=== PATIENT | female | born 1985 | race Hispanic/Latino ===

== ENCOUNTER 2018-03-05 13:59 | Inpatient (IN) | payer MEDICAID, OTHER, SELFPAY ==
[2018-03-05] MEDS ORDERED: Esmolol 100 MG/10 ML VIAL ONE ×2 (14:04→16:57)
[2018-03-05] MEDS ORDERED: Glycopyrrolate 0.2 MG/ML 5 ML SYRINGE ONE ×2 (14:04→16:54)
[2018-03-05] MEDS ORDERED: Ketorolac Tromethamine 30 MG/ML VIAL ONE ×2 (14:04→16:39)
[2018-03-05] MEDS ORDERED: Succinylcholine Chloride 20 MG/ML 10 ml SYRINGE FS ONE ×2 (14:04→17:01)
[2018-03-05] MEDS ORDERED: Dexamethasone 20 MG/5 ML VIAL ONE (14:04)
[2018-03-05] MEDS ORDERED: PHENYLEPHRINE-NS 100 MCG/ML 10 ML SYRINGE ONE ×2 (14:04→16:39)
[2018-03-05] MEDS ORDERED: PROPOFOL 200 MG/20 ML VIAL ONE (14:04)
[2018-03-05] MEDS ORDERED: Ondansetron HCl/PF 4 MG/2 ML Vial ONE (14:04)
[2018-03-05] MEDS: Lactated Ringer's 1,000 ML IV SCH (15:00)
[2018-03-05] MEDS ORDERED: Ondansetron HCl/PF 4 MG/2 ML Vial IVP PRN ×2 (15:11→18:47)
[2018-03-05] MEDS ORDERED: Promethazine HCl 25 MG/ML VIAL IM PRN ×2 (15:11→18:47)
[2018-03-05] MEDS ORDERED: Calcium Gluc 4.6 MEQ/10 ML (100 MG/ML) SLOW IVP PRN (15:11)
[2018-03-05] MEDS ORDERED: Magnesium Sulfate 20 gm/500 ml 20 GM/500 ML BAG IVPB SCH (15:15)
[2018-03-05] MEDS ORDERED: CEFAZOLIN/Water 2 GM/20 ML SYRINGE SLOW IVP SCH (15:15)
[2018-03-05] MEDS ORDERED: Bicitra 30 ML UDCUP PO SCH (15:15)
[2018-03-05] MEDS ORDERED: Magnesium Sulfate 20 GM/WATER 500 ML BAG IVPB SCH (15:15)
--- NOTE | 2018-03-05 15:20 | PDOC.LDHP ---
Labor and Delivery H&P Chief complaint: abdominal pain, other (Headache) HPI: 32 year old @ 33.5 weeks by LMP/28.6 week sono presents with headache and diffuse abdominal pain. Headache and abdominal pain is constant, started yesterday. Pt has had spotty vision and weakness in hands for the past 2 weeks. Denies nausea, vomiting. She was sent over from the [facility] for HTN and concern for preeclampsia with severe features. Pt received steroids last 03/01-03/02. Current gestational age (weeks): 33 (33.5) Due date: 04/18/18 Dating criteria: last menstrual period Grav: 1 Para: 0 OB History Details: 1. Monochorionic diamnionic twins 2. Twin A with IUGR, twin discordance 25% 3. Anemia of 4. TB exposure neg, quant gold neg 5. 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 Bacterial vaginosis, s/p incomplete treatment but asymptomatic Current complications: preeclampsia with severe features, mono/di twins Abnormal US findings: Yes (Twin A with IUGR) Past Medical History: None Current medications: pre-yomaira vitamins Previous surgical history: none Social history: none - Physical Exam Abnormal vital signs: BP 174/94 General: NAD Heart: RRR Lungs: nonlabored breathing Abdomen: gravid Extremeties: trace edema - OB Labs Blood type: O RH: positive Antibody Screen: negative HIV: negative RPR: negative HEPSAg: negative 1 hour GCT: negative GBS: unknown Urine drug screen: not done Rubella: immune - Plan Plan: magnesium for seizure prophylaxis -: 32 year old @ 33.5 weeks by LMP/28.6 week sono presents with headache and diffuse abdominal pain. 1. Preeclampsia with severe features -severe range blood pressures with headache, vision changes and abdominal pain -ordered CMP, CBC, LDH, urine studies -labetalol prn systolic >160/100 -magnesium started -will need mag checks q4h PP 2. twin gestation -monochorionic/diamniotic twins -Twin A with IUGR and discordant growth -Dr. Partida notified -s/p betamethasone x2 last week 3. Anemia of -will monitor H&H 4. Gestation thrombocytopenia -145 on admission -does not meet criteria for severe preeclampsia feature -monitor CBC 5. Bacterial vaginosis -incomplete treatment -will monitor for symptoms PP 6. LSIL pap with high risk HPV -colpo at 6 weeks post Dispo: will proceed with plan for <Venita Musnon - Last Filed: 03/05/18 16:40> <Adams Horton - Last Filed: 03/05/18 16:51> Allergies/Adverse Reactions: Allergies Allergy/AdvReac Type Severity Reaction Status Date / Time No Known Allergies Allergy Unverified 03/05/18 16:41 Attending Addendum - Attending Addendum Date/Time: 03/05/18 5126 I personally evaluated the patient and discussed the management with Dr. Munson , Davonte, and Renzo. I agree with the History, Examination, Assessment and Plan documented above with any addition or exceptions noted below. <Adams Horton - Last Filed: 03/05/18 16:51>
[2018-03-05 15:41] LABS: Hemoglobin 11.2 g/dL (12.0-16.0); Mean Corpuscular HGB CONC 35.3 g/dL (32.0-36.0); Mean Corpuscular Hemoglobin 33.5 pg (27.0-31.0); Mean Corpuscular Volume 94.9 fL (78.0-98.0); Mean Platelet Volume 11.5 fL (7.4-10.4); Platelet Count 145 thou/uL (130-400); RBC Distribution Width 12.1 % (11.5-14.5); Red Blood Cell (RBC) Count 3.35 mill/uL (4.20-5.40); White Blood Cell (WBC) Count 6.8 thou/uL (4.8-10.8)
[2018-03-05 15:53] LABS: ALT (SGPT) 184 U/L (8-55); AST (SGOT) 104 U/L (5-34); Alkaline Phosphatase 315 U/L (40-150); Anion Gap 12 mmol/L (10-20); BUN (Urea Nitrogen) 12 mg/dL (7.0-18.7); Bilirubin, Total 0.3 mg/dL (0.2-1.2); Calc. Creatinine Clearance 0 mL/min (70-130); Calcium 8.4 mg/dL (7.8-10.44); Carbon Dioxide 20 mmol/L (22-29); Chloride 109 mmol/L (98-107); Estimated GFR-MDRD Greater than 90; Globulin 3.3 g/dL (2.4-3.5); Glucose 82 mg/dL (70-105); Potassium 4.2 mmol/L (3.5-5.1); Protein, Total 6.3 g/dL (6.0-8.3); Sodium 137 mmol/L (136-145)
[2018-03-05 15:59] LABS: #Lymphocytes 1.7 thou/uL (1.20-3.40); #Monocytes 0.7 thou/uL (0.11-0.59); #Neutrophils 4.4 thou/uL (1.40-6.50); %Basophils 0.4 % (0.0-1.0); %Eosinophils 0.4 % (0.0-10.0); %Lymphocytes 24.5 % (21.0-51.0); %Monocytes 9.5 % (0.0-10.0); %Neutrophils 65.1 % (42.0-75.0); Band 6 % (5-11); Large Platelets SLIGHT; Lymphocytes 20 % (21-51); MDiff Complete? YES; Monocytes 5 % (0-10); Neutrophil 68 % (42-75); Nucleated RBC 2 % (0); PLT Morphology Comment Appears Adequate; Polychromasia MODERATE = 3-4 cells (100X) (0-2/hpf); Reactive Lymphocytes 1 % (0-10)
[2018-03-05 16:11] LABS: HBSAg Index 0.16 S/CO (0-0.99); Hep B Surf Ag Non-Reactive S/CO (NonReactive)
[2018-03-05 16:17] LABS: Amphetamine Not Detected (NotDetected); Barbiturates Screen Not Detected (NotDetected); Benzodiazepine Screen Not Detected (NotDetected); Cocaine Metabolite Screen Not Detected (NotDetected); Medtox Control Line Valid? VALID (VALID); Medtox Reader # READER 4; Methadone Not Detected (NotDetected); Methamphetamine Not Detected (NotDetected); Opiate Screen Not Detected (NotDetected); Oxycodone Screen Not Detected (NotDetected); Phencyclidine (PCP) Not Detected (NotDetected); THC/Cannabinoid Screen Not Detected (NotDetected); Tricyclic Screen Not Detected (NotDetected)
[2018-03-05 16:24] LABS: Creatinine, Urine 33.18 mg/dL (47-110)
[2018-03-05] MEDS ORDERED: Morphine PF 1 MG/ML SYR ONE (16:39)
[2018-03-05] MEDS ORDERED: Oxytocin 10 UNITS/ML VIAL ONE (16:39)
[2018-03-05] MEDS ORDERED: Bupivacaine 0.75% W/DEXTROSE 8.25% 2 ML AMP ONE ×2 (16:39→17:09)
[2018-03-05] MEDS ORDERED: Dexamethasone 4 mg/ml Vial ONE (16:39)
[2018-03-05] MEDS ORDERED: Lidocaine 1% PF 5 ML VIAL ONE (16:39)
--- NOTE | 2018-03-05 16:48 | PDOC.EVN ---
Event Note - Event Note Event Note: @ 33w5d who presented LT presents a day before her scheduled with headache, vision changes, RUQ/STEPHANIE pain and elevated pressures. Her symptoms have improved but not completely resolved upon my evaluation and is noted to have platelets 140's and elevated LFTs > 2x ULN. Her lungs are clear, hear regular, edema bilaterally and non toxic appearing. Last ate a light meal (banana, bread) ~6 hours ago. A/P: mono/di twin, complicated by isolated FGR twin A (3%, ~1600 g) with twin B (55% , ~2200 g) transverse lie, recommended for delivery for indications as noted in chart preeclampsia with severe features 1. Mg, neurochecks, seizure precautions, serial LFTs 2. Plan for primary . We dicussed r/b/a/i to include pain, bleeding, infection, damage to internal organs that may necessitate repair, need for transfusion, hysterectomy, reoperation, prolonged hospitalization, and, very rarely, . The possibility of poor outcomes have also been discussed and she has had a meeting with neonatology. She voices understanding with dietitian assistant and desires to proceed.
[2018-03-05] MEDS ORDERED: ePHEDrine/0.9% NaCl/PF SYRINGE 50 mg/10 ml ONE (16:54)
[2018-03-05] MEDS ORDERED: Fentanyl 100 MCG/2 ML VIAL ONE ×2 (17:01→18:04)
[2018-03-05] MEDS ORDERED: PROPOFOL 20 ML ONE (17:01)
[2018-03-05] MEDS ORDERED: Lanolin Ointment 7 GM TUBE TOP PRN (17:22)
[2018-03-05] MEDS ORDERED: Adacel (T-DAP) 0.5 ML VIAL IM ONE (17:22)
[2018-03-05] MEDS ORDERED: Lidocaine 1.5% w/Epi 1:200K 30 ML VIAL (Epid Use) ONE (17:59)
[2018-03-05 18:07] LABS: Syphilis Antibody Nonreactive (Nonreactive); Syphilis Antibody Index 0.02 S/CO (<1.00 Non-Reactive)
--- NOTE | 2018-03-05 18:13 | PDOC.OPDEL ---
OB Operative/Delivery Note Delivery Dr/Surgeon: Sol; Roth: Assist: Rui Cramer Pre-Delivery Diagnosis: other (Breathitt/di twins @ 33w5d with severe FGR of twin A; preeclampsia with severe features) Procedure/Post Delivery Dx: other (Post devliery diagnoses same) Anesthesia: other (Failed regional converted to GETA) - Additional Findings/Plan Placenta delivered: spontaneous findings: low transverse hysterotomy without extension Estimated blood loss: 700 Compilations/Other Findings: None immediate Post delivery plan: recovery in LICU (Magnesium; neurochecks; mag levels and serial labs.)
[2018-03-05] MEDS ORDERED: Naloxone HCl 0.4 mg/ml Vial IV PRN (18:47)
[2018-03-05] MEDS ORDERED: HYDROmorphone 10 mg/100 ml CADD IVPB PRN (18:47)
[2018-03-05] MEDS ORDERED: diphenhydrAMINE 25 MG CAP PO PRN (18:47)
[2018-03-05] MEDS ORDERED: diphenhydrAMINE 50 MG/ML VIAL IM PRN (18:47)
[2018-03-05] MEDS ORDERED: Zolpidem Tartrate 5 MG TAB PO PRN (18:47)
[2018-03-05] MEDS ORDERED: Communication Order-Pharmacy FS SCH (19:00)
[2018-03-05 19:30] VITALS: BMI 29.0
[2018-03-05] MEDS ORDERED: HYDROmorphone 0.5 MG/0.5 ML SYRINGE SLOW IVP SCH (19:30)
[2018-03-05] MEDS: diphenhydrAMINE 50 MG/ML VIAL IVP PRN ×2 (19:58→23:01)
[2018-03-05] MEDS ORDERED: Labetalol HCl 100 MG/20 ML VIAL SLOW IVP PRN (20:12)
[2018-03-05] MEDS ORDERED: Labetalol HCl 100 MG/20 ML VIAL SLOW IVP SCH (20:15)
[2018-03-05] MEDS ORDERED: HYDROcodone/Acetaminophen 5/325 mg Tablet PO PRN (20:41)
--- NOTE | 2018-03-05 21:08 | PDOC.PP ---
Post Progress Note Post Day #: 0 Subjective: NAD, resting in bed, pain controlled via MARKETING SALES REPRESENTATIVE per anesthesia. ~4 hours s/p delivery Vital Signs (12 hours) Temp Pulse Resp BP Pulse Ox 03/05/18 15:11 98.1 F 65 16 149/90 H 100 Weight Weight 72.121 kg - Physical Examination General: NAD Respiratory: non-labored breathing Abdominal: appropriately TTP Neurological: no gross focal deficits (2+ reflexes on lower extermities) Result Diagrams: 03/05/18 15:01 03/05/18 15:01 Additional Labs: Post Labs Blood Type O POSITIVE 03/05/18 15:01 Hep Bs Antigen Non-Reactive S/CO (NonReactive) 03/05/18 15:01 (1) Pre-eclampsia, severe Code(s): O14.10 - SEVERE PRE-ECLAMPSIA, UNSPECIFIED TRIMESTER Status: Acute Comment: BP 150s-160s systolic, not requiring any PRN labetalol Mg level pending a this time Normal DTRs bilaterally Good urine output, 650 ml in last hour, putting her at 9 ml/kg/hr Will repeat mg check per routine PRN labetalol available for elevated BP
[2018-03-05] MEDS ORDERED: NS / Oxytocin 40 units/1000ml 1,000 ML ONE (21:44)
[2018-03-05] MEDS ORDERED: NS w/ Pitocin 40 units/1000 ML BAG IV SCH (22:00)
[2018-03-05 22:47] LABS: #Lymphocytes 1.3 thou/uL (1.20-3.40); #Monocytes 0.8 thou/uL (0.11-0.59); #Neutrophils 14.1 thou/uL (1.40-6.50); %Basophils 0.3 % (0.0-1.0); %Eosinophils 0.2 % (0.0-10.0); %Lymphocytes 7.8 % (21.0-51.0); %Monocytes 5.1 % (0.0-10.0); %Neutrophils 86.6 % (42.0-75.0); Hemoglobin 11.9 g/dL (12.0-16.0); Mean Corpuscular HGB CONC 35.9 g/dL (32.0-36.0); Mean Corpuscular Hemoglobin 34.1 pg (27.0-31.0); Mean Platelet Volume 10.3 fL (7.4-10.4); Platelet Count 159 thou/uL (130-400); RBC Distribution Width 12.1 % (11.5-14.5); Red Blood Cell (RBC) Count 3.49 mill/uL (4.20-5.40); White Blood Cell (WBC) Count 16.3 thou/uL (4.8-10.8)
[2018-03-05 23:08] LABS: ALT (SGPT) 193 U/L (8-55); AST (SGOT) 119 U/L (5-34); Alkaline Phosphatase 324 U/L (40-150); Anion Gap 14 mmol/L (10-20); BUN (Urea Nitrogen) 10 mg/dL (7.0-18.7); Bilirubin, Total 0.3 mg/dL (0.2-1.2); Calc. Creatinine Clearance 125 mL/min (70-130); Calcium 8.3 mg/dL (7.8-10.44); Carbon Dioxide 24 mmol/L (22-29); Chloride 106 mmol/L (98-107); Estimated GFR-MDRD Greater than 90; Globulin 3.1 g/dL (2.4-3.5); Glucose 98 mg/dL (70-105); Magnesium 4.8 mg/dL (1.6-2.6); Potassium 4.5 mmol/L (3.5-5.1); Protein, Total 6.1 g/dL (6.0-8.3); Sodium 139 mmol/L (136-145)
--- NOTE | 2018-03-06 02:27 | OP ---
DATE OF ADMISSION: 03/05/2018 PREOPERATIVE DIAGNOSES: 1. Monochorionic-diamniotic twins at 33 weeks and 5 days. 2. Severe growth restriction of twin A (3%) 3. growth discordance of 25%. 4. Preeclampsia with severe features. POSTOPERATIVE DIAGNOSES: 1. Monochorionic-diamniotic twins at 33 weeks and 5 days. 2. Severe growth restriction of twin A (3%) 3. growth discordance at 25%. 4. Preeclampsia with severe features. PROCEDURE: Primary low transverse section. SURGEON: 1. Adams Horton M.D. 2. Adria Wheeler M.D. 3. Nazanin Tellez M.D. ASSISTANTS: 1. Hayder Lu M.D. 2. Genie Cramer M.D. ANESTHESIA: Failed spinal/regional converted to general endotracheal anesthesia. FLUIDS: 1600 urine output, 300 mL of clear. ESTIMATED BLOOD LOSS: 700 mL Complications: None immediate INDICATION AND CONSENT: This is a 32-year-old , who presented at 28 weeks gestation with a twin gestation, subsequently had an ultrasound by [facility] that was consistent with mono-di. At that time also diagnosed with growth restriction of 3% in twin A. Delivery was recommended between 32 and 34 weeks. She subsequently had 2 doses of steroids and presented today to the clinic with elevated blood pressures, headache with vision changes and mid epigastric/right upper quadrant pain that has been going on for about a day. She was referred over to the hospital where it was noted to have pressures in the 180s that improved with magnesium to non-severe range, and LFTs over two times less than normal as well as protein and creatinine ratio of about 1. Both heart tracings were category 1. Repeat ultrasound showed twin A vertex and twin B transverse as in clinic a week before. I have had multiple discussions with the patient since I have met her and she has consistently desired to have a section. We discussed risks, benefits, alternatives, indications of this including pain, bleeding, infection, damage to bowel, bladder and internal organs, need for repair, need for reoperation, need for transfusion, need for measures to control a life-threatening hemorrhage including and up to a hysterectomy as well as very rarely . Patient voices understanding and desires to proceed. PROCEDURE IN DETAIL: The patient was taken back to the operating room where spinal anesthesia was obtained, very easily per Anesthesia. She was prepped and draped in dorsal supine position with a left lateral tilt and after checking prior to incision she was consistently hurting. I discussed in detail the option of sitting her back up for repeat spinal and anesthesia declined because he was very sure that he had achieved the right space. We converted to general endotracheal anesthesia and subsequently a Pfannenstiel skin incision was made and carried down sharply to the fascia which was incised sharply bilaterally and extended with a combination of sharp and blunt dissection. The rectus muscles were split in the midline with blunt dissection. The abdomen was entered bluntly and stretched. An Shane O retractor was placed and, after being sure there is no underlying bowel or omentum, tightened down. A low transverse hysterotomy was made and extended with craniocaudal traction. Amniotic bag was broken and noted to have clear fluid. Twin A was in vertex position and extracted in a nontraumatic manner and cried upon delivery. Cord was clamped and cut and handed off to awaiting NICU attendants. Next, attention was turned to twin B. The breech was brought down to the hysterotomy , the bag ruptured clear and the extracted in the usual breech fashion atraumatically and quite easily. Again, cried at the hysterotomy. Cord was clamped and cut and was taken to the awaiting NICU attendants. Blood was sampled from both cords and placenta was delivered with gentle cord traction and membranes were removed with moist laps and ring forceps. Uterus was wiped x2. Hysterotomy was closed in two layers, first running locking, second running and imbricating with #1 Monocryl with good resultant hemostasis. A small hematoma was noted at the left margin of the hysterotomy during the early staged of closure and did not expand. The posterior aspect of the uterus and broad ligament were inspected and it did not extend posteriorly. The abdomen was irrigated. The peritoneum was closed with 3-0 Vicryl in a running unlocked fashion. The fascia was closed with 0 PDS in a running unlocked fashion. The subcutaneous tissue was closed with 0 Vicryl with 3 interrupted sutures and the skin was closed in subcuticular fashion with 4-0 Monocryl. Dermabond was applied on top of the incision and the procedure was terminated. The patient will be extubated by Anesthesia and taken to the LICU for mag checks , neuro checks, and seizure precautions as well as serial labs in light of her elevated LFTs. No immediate complications. Counts were correct x2. MTDD
--- NOTE | 2018-03-06 03:42 | PDOC.PP ---
Post Progress Note Post Day #: 1 Subjective: Resting comfortably in bed asleep. Denies headache, change in vision, swelling in extremities, RUQ pain. PO intake tolerated: no Vital Signs (12 hours) Temp Pulse Resp 03/06/18 00:05 98.6 F 84 16 03/05/18 20:00 98.6 F 84 16 Weight Weight 72.121 kg - Physical Examination General: NAD Respiratory: non-labored breathing Neurological: no gross focal deficits (DTRs 2+ in bilateral lower extremities) Psychiatric: A&Ox3, normal affect Result Diagrams: 03/05/18 22:38 03/05/18 22:38 Additional Labs: Post Labs Blood Type O POSITIVE 03/05/18 15:01 Hep Bs Antigen Non-Reactive S/CO (NonReactive) 03/05/18 15:01 (1) Pre-eclampsia, severe Code(s): O14.10 - SEVERE PRE-ECLAMPSIA, UNSPECIFIED TRIMESTER Status: Acute Comment: - BP ranging 140-160 systolic not requiring labetolol. - Diuresing well with 100ml/hr putting her at 1.7ml/kg/hr - Mg level is 4.8mg/dL which is below toxic threshold range - F/U repeat Mg check per protocol - PRN labetolol available for elevated BPs
[2018-03-06 06:09] LABS: Mean Corpuscular HGB CONC 35.2 g/dL (32.0-36.0); Mean Corpuscular Hemoglobin 33.5 pg (27.0-31.0); Mean Corpuscular Volume 95.2 fL (78.0-98.0); Mean Platelet Volume 10.2 fL (7.4-10.4); Platelet Count 156 thou/uL (130-400); RBC Distribution Width 12.3 % (11.5-14.5); Red Blood Cell (RBC) Count 3.28 mill/uL (4.20-5.40); White Blood Cell (WBC) Count 16.1 thou/uL (4.8-10.8)
--- NOTE | 2018-03-06 06:58 | PDOC.PP ---
Post Progress Note Post Day #: 1 Subjective: Ms Ansari is a 32yo female s/p PLTCS on 03/05 for preeclampsia with severe features. She has bilateral lower arm pain and weakness. Denies headache , change in vision, swelling in extremities, RUQ pain. Otherwise pain is well controlled. Expected amount of lochia. Has not passed flatus. PO intake tolerated: yes Flatus: no Ambulation: no Vital Signs (12 hours) Temp Pulse Resp 03/06/18 04:00 98.6 F 84 16 03/06/18 00:05 98.6 F 84 16 03/05/18 20:00 98.6 F 84 16 Weight Weight 72.121 kg - Physical Examination General: NAD Cardiovascular: RRR Respiratory: clear to auscultation bilaterally Abdominal: + bowel sounds, lochia, appropriately TTP Deviation from normal: 4/5 wrist mental health counselor bilaterally Deviation from normal: CS incision covered with bandage no drainage Deviation from normal: +2 DTR bilateral patellar & brachioradialis Psychiatric: A&Ox3, normal affect Result Diagrams: 03/06/18 05:54 03/05/18 22:38 Additional Labs: Post Labs Blood Type O POSITIVE 03/05/18 15:01 Hep Bs Antigen Non-Reactive S/CO (NonReactive) 03/05/18 15:01 (1) Pre-eclampsia, severe Code(s): O14.10 - SEVERE PRE-ECLAMPSIA, UNSPECIFIED TRIMESTER Status: Acute (2) care following delivery Code(s): Z39.2 - ENCOUNTER FOR ROUTINE FOLLOW-UP Status: Acute - Assessment/Plan Ms Ansari is a 32yo female s/p PLTCS on 03/05 for preeclampsia with severe features. 1. Preeclampsia with Severe Features - BP ranging 139-166/69-84 - Diuresing well with 100-150ml/hr putting her at 1.38-2.08ml/kg/hr - Mg level is 5.9 mg/dL which is below toxic threshold range - Mg checks hourly per nursing, q4 per MD, and Mg levels q4 - PRN labetolol available for BP > 160/100 2. Day #1 - Pre-e management as above - Breast pump in room, infants in NICU - Pain control per STOPER at this time, will transition when tolerating PO 3. Anemia of - H&H stable - No indication for iron at this time - Continue to monitor lochia and VS Dispo: Will remain on L&D until 24h if BP remain WNL, on Mg. Plan to d/c at 24h if stable. <Nohemi Randle - Last Filed: 03/06/18 11:49> Vital Signs (12 hours) Temp Pulse Resp 03/06/18 08:00 98.6 F 84 16 03/06/18 04:00 98.6 F 84 16 03/06/18 00:05 98.6 F 84 16 Weight Weight 72.121 kg Result Diagrams: 03/06/18 05:54 03/05/18 22:38 Additional Labs: Post Labs Blood Type O POSITIVE 03/05/18 15:01 Hep Bs Antigen Non-Reactive S/CO (NonReactive) 03/05/18 15:01 <Adams Horton - Last Filed: 03/06/18 11:56> Attending Addendum - Attending Addendum Date/Time: 03/06/18 3140 I personally evaluated the patient and discussed the management with Dr. Randle and team. I agree with and repeated the History, Examination, Assessment and Plan documented above with any addition or exceptions noted below. Symptomatically improved. Pain well controlled. No severe symptoms. 2/4 DTRs, no clonus, clear lungs. Labs stable. Good UOP. Hold NSAIDs, <2 g APAP, transition off STOPER when able. 24 h mag, repeat mag level and labs. Monitor BP. Neurochecks/seizure precautions. <Adams Horton - Last Filed: 03/06/18 11:56>
--- NOTE | 2018-03-06 11:44 | PDOC.PP ---
Post Progress Note Post Day #: 1 Subjective: Ms Ansari is a 32yo female s/p PLTCS on 03/05 for preeclampsia with severe features. Denies headache, change in vision, swelling in extremities, RUQ pain. Otherwise pain is well controlled with STEEPING PRESS TENDER. Expected amount of lochia. Has not passed flatus. PO intake tolerated: no Flatus: no Ambulation: no Vital Signs (12 hours) Temp Pulse Resp 03/06/18 08:00 98.6 F 84 16 03/06/18 04:00 98.6 F 84 16 03/06/18 00:05 98.6 F 84 16 Weight Weight 72.121 kg - Physical Examination General: NAD Cardiovascular: RRR Respiratory: clear to auscultation bilaterally Abdominal: + bowel sounds, lochia, appropriately TTP Deviation from normal: CS incision covered with bandage, no drainage Neurological: no gross focal deficits Deviation from normal: DTR brisk Psychiatric: A&Ox3, normal affect Result Diagrams: 03/06/18 05:54 03/06/18 12:18 Additional Labs: Post Labs Blood Type O POSITIVE 03/05/18 15:01 Hep Bs Antigen Non-Reactive S/CO (NonReactive) 03/05/18 15:01 (1) Pre-eclampsia, severe Code(s): O14.10 - SEVERE PRE-ECLAMPSIA, UNSPECIFIED TRIMESTER Status: Acute (2) care following delivery Code(s): Z39.2 - ENCOUNTER FOR ROUTINE FOLLOW-UP Status: Acute - Assessment/Plan Ms Ansari is a 32yo female s/p PLTCS on 03/05 for preeclampsia with severe features. 1. Preeclampsia with Severe Features - BP ranging 139-166/69-84 - Diuresing well with 125ml/hr putting her at 1.73ml/kg/hr - Mg level is 5.9 mg/dL which is below toxic threshold range - Mg checks hourly per nursing, q4 per MD, and Mg levels q4 - PRN labetolol available for BP > 160/100 - D/c Mg @1900 2. Day #1 - Pre-e management as above - Breast pump in room, infants in NICU - Pain control per STEEPING PRESS TENDER at this time, will transition when tolerating PO 3. Anemia of - H&H stable - No indication for iron at this time - Continue to monitor lochia and VS Dispo: Will remain on L&D until 24h if BP remain WNL, on Mg. Plan to d/c at 24h if stable. <Nohemi Randle - Last Filed: 03/06/18 16:22> Vital Signs (12 hours) Temp Pulse Resp 03/06/18 12:00 98.6 F 84 16 03/06/18 08:00 98.6 F 84 16 Weight Weight 72.121 kg Result Diagrams: 03/06/18 05:54 03/06/18 12:18 Additional Labs: Post Labs Blood Type O POSITIVE 03/05/18 15:01 Hep Bs Antigen Non-Reactive S/CO (NonReactive) 03/05/18 15:01 <Adams Horton - Last Filed: 03/06/18 16:31> Attending Addendum - Attending Addendum Date/Time: 03/06/18 1631 I personally evaluated the patient and discussed the management with Dr. Randle. I agree with the History, Examination, Assessment and Plan documented above with any addition or exceptions noted below. <Adams Horton - Last Filed: 03/06/18 16:31>
[2018-03-06] MEDS ORDERED: Magnesium Sulfate 20 gm/500 ml 20 GM/500 ML BAG ONE (12:14)
[2018-03-06] MEDS: Lactated Ringer's 1,000 ML IV SCH (12:18)
[2018-03-06 12:38] LABS: INR-International Normal Ratio 0.9; PTT 28.3 SEC (22.9-36.1); Prothrombin Time 11.7 SEC (12.0-14.7)
[2018-03-06 12:49] LABS: ALT (SGPT) 172 U/L (8-55); AST (SGOT) 104 U/L (5-34); Albumin 2.8 g/dL (3.5-5.0); Alkaline Phosphatase 292 U/L (40-150); Anion Gap 11 mmol/L (10-20); BUN (Urea Nitrogen) 10 mg/dL (7.0-18.7); Bilirubin, Total 0.3 mg/dL (0.2-1.2); Calc. Creatinine Clearance 120 mL/min (70-130); Calcium 7.2 mg/dL (7.8-10.44); Carbon Dioxide 24 mmol/L (22-29); Chloride 100 mmol/L (98-107); Estimated GFR-MDRD 88; Glucose 79 mg/dL (70-105); Magnesium 6.3 mg/dL (1.6-2.6); Potassium 4.8 mmol/L (3.5-5.1); Protein, Total 5.8 g/dL (6.0-8.3); Sodium 130 mmol/L (136-145)
--- NOTE | 2018-03-06 16:13 | PDOC.PP ---
Post Progress Note Post Day #: 1 Subjective: Ms Ansari is a 32yo female s/p PLTCS on 03/05 for preeclampsia with severe features. Denies headache, change in vision, swelling in extremities, RUQ pain. Otherwise pain is well controlled with ULTRASONIC TESTER. Expected amount of lochia. Has not passed flatus. PO intake tolerated: no Flatus: no Ambulation: no Vital Signs (12 hours) Temp Pulse Resp 03/06/18 12:00 98.6 F 84 16 03/06/18 08:00 98.6 F 84 16 Weight Weight 72.121 kg - Physical Examination General: NAD Cardiovascular: RRR Respiratory: clear to auscultation bilaterally Abdominal: + bowel sounds, lochia, appropriately TTP Deviation from normal: CS incision covered with dressing, no drainage Deviation from normal: DTRs brisk Psychiatric: A&Ox3, normal affect Result Diagrams: 03/06/18 05:54 03/06/18 12:18 Additional Labs: Post Labs Blood Type O POSITIVE 03/05/18 15:01 Hep Bs Antigen Non-Reactive S/CO (NonReactive) 03/05/18 15:01 (1) Pre-eclampsia, severe Code(s): O14.10 - SEVERE PRE-ECLAMPSIA, UNSPECIFIED TRIMESTER Status: Acute (2) care following delivery Code(s): Z39.2 - ENCOUNTER FOR ROUTINE FOLLOW-UP Status: Acute - Assessment/Plan Ms Ansari is a 32yo female s/p PLTCS on 03/05 for preeclampsia with severe features. 1. Preeclampsia with Severe Features - BP ranging 127-172/83-93 - Diuresing well with 100-150ml/hr putting her at 1.38-2.08ml/kg/hr - Mg level is 6.3mg/dL which is below toxic threshold range - Mg checks hourly per nursing, q4 per MD, and Mg levels q4 - PRN labetolol available for BP > 160/100 2. Day #1 - Pre-e management as above - Breast pump in room, infants in NICU - Pain control per ULTRASONIC TESTER at this time, will transition when tolerating PO 3. Anemia of - H&H stable - No indication for iron at this time - Continue to monitor lochia and VS Dispo: Will remain on L&D until 24h if BP remain WNL, on Mg. Plan to d/c at 24h if stable. <Nohemi Randle - Last Filed: 03/06/18 16:22> Vital Signs (12 hours) Temp Pulse Resp 03/06/18 12:00 98.6 F 84 16 03/06/18 08:00 98.6 F 84 16 Weight Weight 72.121 kg Result Diagrams: 03/06/18 05:54 03/06/18 12:18 Additional Labs: Post Labs Blood Type O POSITIVE 03/05/18 15:01 Hep Bs Antigen Non-Reactive S/CO (NonReactive) 03/05/18 15:01 <Adams Horton - Last Filed: 03/06/18 16:27> Attending Addendum - Attending Addendum Date/Time: 03/06/18 8857 I personally evaluated the patient and discussed the management with Dr. Randle. I agree with and repeated the History, Examination, Assessment and Plan documented above with any addition or exceptions noted below. D/c Mg at 24 hours. Continue observation. <Adams Horton - Last Filed: 03/06/18 16:27>
[2018-03-06] MEDS: Ferrous Sulfate 325 MG TAB PO SCH (20:11)
[2018-03-06] MEDS: Ibuprofen 800 MG TAB PO SCH ×2 (20:12→21:22)
--- NOTE | 2018-03-06 21:14 | PDOC.PP ---
Post Progress Note Post Day #: 1 Subjective: Pt. is complaining of 10/10 pain. Denies dyspnea, chest pain. Blood pressure at 20:00 was 159/90, blood pressure at 2130 was 126/83. PO intake tolerated: yes Flatus: no Ambulation: no Vital Signs (12 hours) Temp Pulse Resp 03/06/18 16:00 98.6 F 84 16 03/06/18 12:00 98.6 F 84 16 Weight Weight 72.121 kg - Physical Examination Deviation from normal: Appears in pain Cardiovascular: RRR Respiratory: clear to auscultation bilaterally Neurological: no gross focal deficits (DTRs are +2 in bilateral lower extermities) Psychiatric: A&Ox3 Result Diagrams: 03/06/18 05:54 03/06/18 12:18 Additional Labs: Post Labs Blood Type O POSITIVE 03/05/18 15:01 Hep Bs Antigen Non-Reactive S/CO (NonReactive) 03/05/18 15:01 (1) Pre-eclampsia, severe Code(s): O14.10 - SEVERE PRE-ECLAMPSIA, UNSPECIFIED TRIMESTER Status: Acute Comment: (2) care following delivery Code(s): Z39.2 - ENCOUNTER FOR ROUTINE FOLLOW-UP Status: Acute - Assessment/Plan DTRs intact will repeat Mg monitor BP PRN labetalol available for elevated BP Pt. was given one does of motrin, motrin has been stopped.
[2018-03-06] MEDS ORDERED: HYDROcodone/Acetaminophen 5/325 mg Tablet PO PRN (23:18)
[2018-03-07] MEDS ORDERED: Sodium Chloride 0.9% 10 ML ONE (02:02)
--- NOTE | 2018-03-07 05:26 | PDOC.PP ---
Post Progress Note Post Day #: 2 Subjective: Ms Ansari is a 32yo female s/p PLTCS on 03/05 for preeclampsia with severe features. Denies headache, change in vision, swelling in extremities, RUQ pain. Expected amount of lochia. She is passing gas, eating and ambulating. She reports 5/10 pain that is located in lower abdomen. She received motrin, norco and morphine overnight. The morphine provided the most relief. SCALE EXPERT & pascual where removed around 2100 prior to transfer to postpardum. She is voiding without difficulty. PO intake tolerated: yes Flatus: yes Ambulation: yes Vital Signs (12 hours) Temp Pulse Resp BP 03/06/18 21:15 99.1 F 74 20 126/83 Weight Weight 72.121 kg - Physical Examination General: NAD Deviation from normal: resting Cardiovascular: RRR Respiratory: clear to auscultation bilaterally Abdominal: + bowel sounds, lochia, appropriately TTP Fundus firm & at: Unable to palpate, patient unable to tolerate Skin: CS incision dry & intact Psychiatric: A&Ox3, normal affect Result Diagrams: 03/07/18 10:18 03/06/18 12:18 Additional Labs: Post Labs Blood Type O POSITIVE 03/05/18 15:01 Hep Bs Antigen Non-Reactive S/CO (NonReactive) 03/05/18 15:01 (1) Pre-eclampsia, severe Code(s): O14.10 - SEVERE PRE-ECLAMPSIA, UNSPECIFIED TRIMESTER Status: Acute Comment: (2) care following delivery Code(s): Z39.2 - ENCOUNTER FOR ROUTINE FOLLOW-UP Status: Acute - Assessment/Plan Ms Ansari is a 32yo female s/p PLTCS on 03/05 for preeclampsia with severe features. 1. Preeclampsia with Severe Features - Last BP 104/59 - Mg stopped at 1900 03/06/18 - PRN labetolol available for BP > 160/100 2. Day #2 - Pre-e management as above - Breast pump in room, infants in NICU - [place] was increased from 5 to 7.5 due to poor pain control overnight - Morphine 4mg PRN 3. Anemia of - H&H stable - No indication for iron at this time - Continue to monitor lochia and VS Dispo: Will consider d/c once monitored for 72 hours if stable
[2018-03-07] MEDS: Lactated Ringer's 1,000 ML IV SCH ×3 (07:31→14:06)
[2018-03-07] MEDS: Prenatal Vitamin 1 TAB PO SCH ×2 (07:32→09:44)
[2018-03-07] MEDS: Ferrous Sulfate 325 MG TAB PO SCH ×2 (07:32→07:34)
[2018-03-07] MEDS: Simethicone Chewable 80 MG TAB PO PRN ×3 (09:45→21:19)
[2018-03-07] MEDS: HYDROcodone/Acetaminophen 7.5/325 mg Tablet PO PRN ×4 (09:48→23:56)
[2018-03-07] MEDS ORDERED: HYDROcodone/Acetaminophen 7.5/325 mg Tablet PO PRN (10:00)
[2018-03-07 10:37] LABS: Hemoglobin 11.1 g/dL (12.0-16.0); Platelet Count 182 thou/uL (130-400)
--- NOTE | 2018-03-08 05:58 | PDOC.PP ---
Post Progress Note Post Day #: 3 Subjective: Ms Ansari is a 32yo female s/p PLTCS on 03/05 for preeclampsia with severe features. Denies change in vision, swelling in extremities, RUQ pain. Reports mild headache. Expected amount of lochia. She is passing gas, eating and ambulating. Pain is adequately controlled. She reports feeling sad and crying unexpectedly. She is also concerned about when she will be able to go home with her twins. PO intake tolerated: yes Flatus: yes Ambulation: yes Vital Signs (12 hours) Temp Pulse Resp BP 03/08/18 00:00 99.1 F 71 16 138/87 03/07/18 20:00 98.5 F 78 16 131/83 Weight Weight 72.121 kg - Physical Examination General: NAD Cardiovascular: RRR Respiratory: clear to auscultation bilaterally Abdominal: + bowel sounds, lochia, appropriately TTP Skin: CS incision dry & intact Deviation from normal: uterus palpable below the umbilicus Psychiatric: A&Ox3, normal affect Result Diagrams: 03/07/18 10:18 03/06/18 12:18 Additional Labs: Post Labs Blood Type O POSITIVE 03/05/18 15:01 Hep Bs Antigen Non-Reactive S/CO (NonReactive) 03/05/18 15:01 (1) Pre-eclampsia, severe Code(s): O14.10 - SEVERE PRE-ECLAMPSIA, UNSPECIFIED TRIMESTER Status: Acute (2) care following delivery Code(s): Z39.2 - ENCOUNTER FOR ROUTINE FOLLOW-UP Status: Acute - Assessment/Plan Ms Ansari is a 32yo female s/p PLTCS on 03/05 for preeclampsia with severe features. 1. Preeclampsia with Severe Features - BP's well controlled - Mg stopped at 1900 03/06/18 - PRN labetolol available for BP > 160/100 2. Day #2 - Pre-e management as above - Breast pump in room, infants in NICU - Continue [place] 7.5mg for pain - Plan to d/c with [place] 5mg for pain controll - Morphine 4mg PRN 3. Blues - Arrange 1 week f/u prior to discharge to make sure symptoms resolve 4. Anemia of - H&H stable - No indication for iron at this time - Continue to monitor lochia and VS Dispo: D/c today after monitoring 72hours if stable <Nohemi Randle - Last Filed: 03/08/18 10:11> Vital Signs (12 hours) Temp Pulse Resp BP BP BP BP 03/08/18 11:30 99.0 F 72 18 128/87 126/87 129/80 03/08/18 08:20 98.3 F 88 20 130/87 03/08/18 08:00 98.3 F 88 20 03/08/18 05:58 98.5 F 78 16 131/87 Weight Weight 72.121 kg Result Diagrams: 03/07/18 10:18 03/06/18 12:18 Additional Labs: Post Labs Blood Type O POSITIVE 03/05/18 15:01 Hep Bs Antigen Non-Reactive S/CO (NonReactive) 03/05/18 15:01 <Adams Horton - Last Filed: 03/08/18 12:17> Attending Addendum - Attending Addendum Date/Time: 03/08/18 1216 I personally evaluated the patient and discussed the management with Dr. Randle. I agree with and repeated the History, Examination, Assessment and Plan documented above with any addition or exceptions noted below. No h/a currently. Improves with medication. No vision changes/RUE/STEPHANIE pain. Mild abd cramping. Exam unremarkable. Monitor for PP blues/depression and follow in clinic next week for BP check and wound check. May room in as desired. <Adams Horton - Last Filed: 03/08/18 12:17>
[2018-03-08] MEDS: Simethicone Chewable 80 MG TAB PO PRN (08:06)
[2018-03-08] MEDS: Prenatal Vitamin 1 TAB PO SCH (08:06)
[2018-03-08] MEDS: HYDROcodone/Acetaminophen 7.5/325 mg Tablet PO PRN (08:07)
[2018-03-08 21:37] VITALS: BP 139/89; TEMP 97.8
== END 2018-03-08 21:30 | disposition home or self-care (01) | DRG 765 ==
LOC: L&D/OP 13:59 → L&D 17:26 → 3SW 03-06 20:56
PROVIDERS: ADMIT Student in an Organized Health Care Education/Training Program; ATTEND Student in an Organized Health Care Education/Training Program
PROC: 10D00Z1 Extraction of Products of Conception, Low, Open Approach (ICD-10-PCS; principal; 2018-03-05)
DX: O36.5931 Maternal care for other known or suspected poor fetal growth, third trimester, fetus 1 (principal); O75.3 Other infection during labor; O99.12 Other diseases of the blood and blood-forming organs and certain disorders involving the immune mechanism complicating childbirth; O14.14 Severe pre-eclampsia complicating childbirth; O99.02 Anemia complicating childbirth; D64.9 Anemia, unspecified; O32.1XX2 Maternal care for breech presentation, fetus 2; B96.89 Other specified bacterial agents as the cause of diseases classified elsewhere; N76.0 Acute vaginitis; D69.6 Thrombocytopenia, unspecified; Z3A.33 33 weeks gestation of pregnancy; Z37.2 Twins, both liveborn; O30.033 Twin pregnancy, monochorionic/diamniotic, third trimester
CPT/HCPCS: 36415; 51702; 80053; 80306; 82570; 83615; 83735; 84156; 85014; 85018; 85025; 85027; 85049; 85610; 85730; 86780; 86850; 86900; 86901; 87340; 88307; 90715; 99285; A4216; J1100; J1200; J1885; J2001; J2270; J2274; J2405; J2590; J2704; J3010; J3475; J3490